=== PATIENT | female | born 1945 | race Caucasian/White ===

== ENCOUNTER 2016-12-08 11:56 | Observation (INO) ==
[2016-12-08] MEDS ORDERED: NITROGLYCERIN 2% OINT 1 INCH/GM PACK TOP STA (12:14)
[2016-12-08] MEDS ORDERED: ASPIRIN 325 MG TABLET PO STA (12:14)
[2016-12-08] MEDS ORDERED: ENOXAPARIN 100 MG/ML SYRINGE SUBCUT STA (12:14)
[2016-12-08] MEDS ORDERED: MORPHINE 2 MG/1 ML SYRINGE IV PRN (12:14)
[2016-12-08] MEDS ORDERED: ONDANSETRON 4 MG/2 ML VIAL IV PRN (12:14)
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
[2016-12-08 12:34] LABS: Basophils # 0.1 10*3/uL (0.0-0.2); Basophils % 0.9 % (0.0-0.8); Eosinophils # 0.1 10*3/uL (0.0-0.87); Eosinophils % 1.5 % (0.00-10.9); Hematocrit 36.3 VOL% (35.7-47.0); Hemoglobin 12.5 GM/DL (12.0-16.0); Immature Granulocytes % 0.2 %; Immature Granulocytes Absolute 0.01 #; Lymphocytes # 1.6 10*3/uL (1.4-4.0); Lymphocytes % 26.9 % (21.3-54.2); Mean Corpuscular HGB Conc 34.4 GM/DL (32-36); Mean Corpuscular Hemoglobin 31 PG (27-34); Mean Corpuscular Volume 90.8 FL (87-102); Mean Platelet Volume 10.6 FL (9.6-12.0); Monocytes # 0.4 10*3/uL (0.11-0.8); Monocytes % 7.5 % (1.7-12.7); Neutrophils # 3.7 10*3/uL (1.4-7.4); Platelet Count 168 T/CUMM (130-400); Red Cell Distribution Width 12.5 % (9.3-17.3); White Blood Count 5.8 T/CUMM (4-12)
--- NOTE | 2016-12-08 12:37 | XRay Report ---
XR chest 2V Indication: Chest pain Comparison: None available Findings: The heart and mediastinum are normal in size and configuration. The pulmonary vascularity is normal in caliber. No lung infiltrates, effusions, pneumothorax or other abnormality is demonstrated. Impression: Normal chest x-ray PROCEDURE INTERPRETED AT [facility] DEPARTMENT OF RADIOLOGY Final Report Signed by: Dr. Renato Rosenbaum
--- NOTE | 2016-12-08 12:39 | EKG Report ---
Stationary ECG Study [facility] ER Test Date: 12/08/2016 12:07:10 PM Pat Name: TASHA GOVEA Department: Room: Gender: F Payroll And Benefits Coordinator: : 1945 Requested by: Morro Florez Order Number: [id number] Reading MD: BETTY MORALES Intervals [place] Rate: 68 P: 999 ND: 0 QRS: 71 QRSD: 86 T: 44 QT: 445 QTc: 463 Interpretive Statements SINUS RHYTHM Electronically Signed On 12-09-16 18:31:31 CDT by BETTY MORALES [email or web address]
[2016-12-08 12:51] LABS: PT Patient Result 10.5 SECS; Partial Thromboplastin Time 24.7 SECS (0-40)
[2016-12-08] MEDS ORDERED: ASPIRIN 325 MG TABLET ONE (12:51)
[2016-12-08] MEDS ORDERED: NITROGLYCERIN 2% OINT 1 INCH/GM PACK TOP ONE (12:51)
[2016-12-08] MEDS ORDERED: ENOXAPARIN 60 MG/0.6 ML SYRINGE ONE (12:51)
[2016-12-08 13:48] LABS: Alanine Aminotransferase 18 U/L (13-56); Albumin 3.1 G/DL (3.4-5.0); Alkaline Phosphatase 70 U/L (45-117); Aspartate Amino Transferase 18 U/L (0-37); Bilirubin,Total < 0.39 MG/DL (0.2-1.0); Blood Urea Nitrogen 18 MG/DL (7-18); Glucose 87 MG/DL (74-106); Osmolality,Calculated 281.3 MOS/KG (273-304); Potassium 3.8 MMOL/L (3.5-5.1); Sodium 141 MMOL/L (136-145); Total Protein 6.2 G/DL (6.4-8.3)
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
[2016-12-08] MEDS ORDERED: ACETAMINOPHEN 325 MG TABLET PO PRN (15:36)
[2016-12-08] MEDS ORDERED: DOCUSATE SODIUM 100 MG CAPSULE PO PRN (15:36)
[2016-12-08] MEDS ORDERED: ALUM/MAG/SIMETH/LIDO VISC 1:1 30 ML BOTTLE PO ONE (16:37)
[2016-12-08] MEDS: SODIUM CHLORIDE 0.9% 1,000 ML IV SCH (17:30)
[2016-12-08] MEDS: PANTOPRAZOLE 40 MG TABLET PO SCH ×2 (17:30→22:07)
[2016-12-08] MEDS: ONDANSETRON 4 MG/2 ML VIAL IV PRN (17:31)
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
[2016-12-08] MEDS ORDERED: POTASSIUM CHLORIDE RIDER 10 MEQ in PREMIX 1 EACH IV PRN (17:36)
[2016-12-08] MEDS ORDERED: MAGNESIUM SULF RIDER 2 GM in PREMIX 1 EACH IV PRN (17:36)
--- NOTE | 2016-12-08 18:09 | EKG Report ---
Stationary ECG Study [facility] Test Date: 12/08/2016 6:11:27 PM Pat Name: TASHA GOVEA Department: Room: 276 Gender: F Shipping Room Helper: : 1945 Requested by: Morro Florez Order Number: [id number] Reading MD: DELBERT VALLADARES Intervals [place] Rate: 69 P: 78 NE: 147 QRS: 67 QRSD: 85 T: 57 QT: 428 QTc: 446 Interpretive Statements SINUS RHYTHM Electronically Signed On 12-10-16 05:24:19 CDT by DELBERT VALLADARES [id number]
[2016-12-08 19:37] LABS: Apearance,Urine CLEAR (Clear); Bacteria,Urine Occasional /HPF (Few); Bilirubin,Urine Negative (Negative); Blood, Urine Negative (Negative); Glucose,Urine (UA) Negative (Negative); Ketones,Urine Negative (Negative); Mucus,Urine Occasional /LPF (Occasional); Nitrite,Urine Negative (Negative); Protein,Urine Negative; RBC,Urine <1 /HPF (0-4); Squamous Epithelial Cell,Urine Occasional /HPF (0-10); Urine Color Straw (Yellow); Urine Specific Gravity 1.009 (1.001-1.035); Urine Urobilinogen < 2.0 EU/DL (0.2-1.0); WBC,Urine <1 /HPF (0-6)
[2016-12-09 05:45] LABS: Basophils # 0.1 10*3/uL (0.0-0.2); Eosinophils # 0.1 10*3/uL (0.0-0.87); Eosinophils % 2.7 % (0.00-10.9); Hematocrit 33.4 VOL% (35.7-47.0); Hemoglobin 11.2 GM/DL (12.0-16.0); Immature Granulocytes % 0.2 %; Immature Granulocytes Absolute 0.01 #; Lymphocytes # 1.9 10*3/uL (1.4-4.0); Lymphocytes % 39.8 % (21.3-54.2); Mean Corpuscular HGB Conc 33.5 GM/DL (32-36); Mean Corpuscular Hemoglobin 30 PG (27-34); Mean Corpuscular Volume 90.5 FL (87-102); Mean Platelet Volume 11.2 FL (9.6-12.0); Monocytes # 0.4 10*3/uL (0.11-0.8); Monocytes % 8.8 % (1.7-12.7); Neutrophils # 2.3 10*3/uL (1.4-7.4); Neutrophils % 47.5 % (38.7-73.9); Platelet Count 162 T/CUMM (130-400); Red Blood Count 3.69 MC/CUMM (3.8-5.5); Red Cell Distribution Width 12.6 % (9.3-17.3); White Blood Count 4.8 T/CUMM (4-12)
[2016-12-09] MEDS ORDERED: DIAZEPAM 5 MG TABLET PO ONE (06:00)
[2016-12-09] MEDS ORDERED: diphenhydrAMINE CAP 25 MG CAPSULE PO ONE (06:00)
[2016-12-09 06:36] LABS: Calcium 7.5 MG/DL (8.5-10.1); Magnesium 2.3 MG/DL (1.8-2.4); Osmolality,Calculated 282.1 MOS/KG (273-304); Potassium 4.1 MMOL/L (3.5-5.1); Risk Ratio 2.49; Thyroid Stimulating Hormone 2.94 uIU/ml (0.358-3.74); VLDL CHOLESTEROL 21.2 MG/DL
--- NOTE | 2016-12-09 07:06 | EKG Report ---
Stationary ECG Study [facility] Test Date: 12/09/2016 7:08:39 AM Pat Name: TASHA GOVEA Department: Room: 276 Gender: F Health Safety Specialist: CEE : 1945 Requested by: Joel Marcos Order Number: [id number] Rox MD: DELBERT VALLADARES Intervals [place] Rate: 66 P: 81 DE: 148 QRS: 80 QRSD: 87 T: 43 QT: 424 QTc: 437 Interpretive Statements SINUS RHYTHM Electronically Signed On 12-10-16 05:31:13 CDT by DELBERT VALLADARES [email or web address]
[2016-12-09] MEDS ORDERED: ASPIRIN EC 325 MG TABLET PO SCH (09:00)
[2016-12-09] MEDS: PANTOPRAZOLE 40 MG TABLET PO SCH ×2 (09:27→20:13)
--- NOTE | 2016-12-09 11:38 | Cardiology Progress Note ---
Cardiology - PN: Subj Interval history: Cardiology note No further pain. Telemetry has been benign. Blood pressure 140/86 Decreased breath sounds but clear Regular rhythm no murmur or gallop Abdomen benign Good distal pulses Lab data today Sodium 142 potassium 4.1 chloride 110 CO2 26 BUN 14 creatinine 0.70 Glucose 79 magnesium 2.3 Hemoglobin 11.2 Impression New onset chest pain Multiple risk factors Strong family history CAD Plan Cardiac cath today with Dr. Elias Exam (Progress Note) - Constitutional Vitals: Period Temp Pulse Resp BP Sys/Saunders Pulse Ox Last 24 Hr 96.3 F-99.3 F 66-78 12-20 106-153/51-83 96-100 Result/EKG - Labs CBC & BMP: 12/09/16 04:38 12/09/16 04:38 Labs: Laboratory Results - last 24 hr 12/08/16 12/08/16 12/08/16 12:23 12:23 12:23 WBC 5.8 RBC 4.00 Hgb 12.5 Hct 36.3 MCV 90.8 MCH 31 MCHC 34.4 RDW 12.5 Plt Count 168 MPV 10.6 Neut % (Auto) 63.0 Lymph % (Auto) 26.9 [place] % (Auto) 7.5 Eos % (Auto) 1.5 Baso % (Auto) 0.9 H Neut # (Auto) 3.7 Lymph # (Auto) 1.6 [place] # (Auto) 0.4 Eos # (Auto) 0.1 Baso # (Auto) 0.1 Immature Gran % 0.2 Nucleated RBC % 0.0 Immature Gran # 0.01 Nucleated RBCs # 0.00 INR 1.0 PT Patient/Control Mix 10.5 Circ Anticoag PTT 24.7 Sodium 141 Potassium 3.8 Chloride 109 H Carbon Dioxide 23 Anion Gap 12.8 BUN 18 Creatinine 0.70 GFR Calculation 77 BUN/Creatinine Ratio 25.00 H Glucose 87 Hemoglobin A1c Calculated Osmolality 281.3 Calcium 8.0 L Magnesium Total Bilirubin < 0.39 AST 18 ALT 18 Alkaline Phosphatase 70 Troponin I B-Natriuretic Peptide Total Protein 6.2 L Albumin 3.1 L Globulin 3.1 Albumin/Globulin Ratio 1.0 L Triglycerides Cholesterol LDL Cholesterol VLDL Cholesterol HDL Cholesterol Heart Disease Risk Ratio Free T4 TSH 3rd Generation Urine Color Urine Appearance Urine pH Ur Specific [place] Urine Protein Urine Glucose (UA) Urine Ketones Urine Blood Urine Nitrate Urine Bilirubin Urine Urobilinogen Urine Leukocytes Urine RBC Urine WBC Ur Squamous Epith Cells Urine Bacteria Urine Mucus Ur Culture Indicated? 12/08/16 12/08/16 12/08/16 12:23 17:14 19:07 WBC RBC Hgb Hct MCV MCH MCHC RDW Plt Count MPV Neut % (Auto) Lymph % (Auto) [place] % (Auto) Eos % (Auto) Baso % (Auto) Neut # (Auto) Lymph # (Auto) [place] # (Auto) Eos # (Auto) Baso # (Auto) Immature Gran % Nucleated RBC % Immature Gran # Nucleated RBCs # INR PT Patient/Control Mix Circ Anticoag PTT Sodium Potassium Chloride Carbon Dioxide Anion Gap BUN Creatinine GFR Calculation BUN/Creatinine Ratio Glucose Hemoglobin A1c Calculated Osmolality Calcium Magnesium Total Bilirubin AST ALT Alkaline Phosphatase Troponin I 0.019 0.249 H D B-Natriuretic Peptide Total Protein Albumin Globulin Albumin/Globulin Ratio Triglycerides Cholesterol LDL Cholesterol VLDL Cholesterol HDL Cholesterol Heart Disease Risk Ratio Free T4 TSH 3rd Generation Urine Color Straw Urine Appearance Clear Urine pH 6.0 Ur Specific [place] 1.009 Urine Protein Negative Urine Glucose (UA) Negative Urine Ketones Negative Urine Blood Negative Urine Nitrate Negative Urine Bilirubin Negative Urine Urobilinogen < 2.0 H Urine Leukocytes Negative Urine RBC <1 Urine WBC <1 Ur Squamous Epith Cells Occasional Urine Bacteria Occasional Urine Mucus Occasional Ur Culture Indicated? Not indicated 12/08/16 12/09/16 12/09/16 19:59 04:38 04:38 WBC 4.8 RBC 3.69 L Hgb 11.2 L Hct 33.4 L MCV 90.5 MCH 30 MCHC 33.5 RDW 12.6 Plt Count 162 MPV 11.2 Neut % (Auto) 47.5 Lymph % (Auto) 39.8 [place] % (Auto) 8.8 Eos % (Auto) 2.7 Baso % (Auto) 1.0 H Neut # (Auto) 2.3 Lymph # (Auto) 1.9 [place] # (Auto) 0.4 Eos # (Auto) 0.1 Baso # (Auto) 0.1 Immature Gran % 0.2 Nucleated RBC % 0.0 Immature Gran # 0.01 Nucleated RBCs # 0.00 INR PT Patient/Control Mix Circ Anticoag PTT Sodium 142 Potassium 4.1 Chloride 110 H Carbon Dioxide 26 Anion Gap 10.1 BUN 14 Creatinine 0.70 GFR Calculation 77 BUN/Creatinine Ratio 20.00 Glucose 79 Hemoglobin A1c Calculated Osmolality 282.1 Calcium 7.5 L Magnesium 2.3 Total Bilirubin AST ALT Alkaline Phosphatase Troponin I 0.458 H D B-Natriuretic Peptide Total Protein Albumin Globulin Albumin/Globulin Ratio Triglycerides 106 Cholesterol 179 LDL Cholesterol 91.0 VLDL Cholesterol 21.2 HDL Cholesterol 72 H Heart Disease Risk Ratio 2.49 Free T4 TSH 3rd Generation 2.940 Urine Color Urine Appearance Urine pH Ur Specific [place] Urine Protein Urine Glucose (UA) Urine Ketones Urine Blood Urine Nitrate Urine Bilirubin Urine Urobilinogen Urine Leukocytes Urine RBC Urine WBC Ur Squamous Epith Cells Urine Bacteria Urine Mucus Ur Culture Indicated? 12/09/16 12/09/16 12/09/16 04:38 04:38 04:38 WBC RBC Hgb Hct MCV MCH MCHC RDW Plt Count MPV Neut % (Auto) Lymph % (Auto) [place] % (Auto) Eos % (Auto) Baso % (Auto) Neut # (Auto) Lymph # (Auto) [place] # (Auto) Eos # (Auto) Baso # (Auto) Immature Gran % Nucleated RBC % Immature Gran # Nucleated RBCs # INR PT Patient/Control Mix Circ Anticoag PTT Sodium Potassium Chloride Carbon Dioxide Anion Gap BUN Creatinine GFR Calculation BUN/Creatinine Ratio Glucose Hemoglobin A1c 5.4 Calculated Osmolality Calcium Magnesium Total Bilirubin AST ALT Alkaline Phosphatase Troponin I B-Natriuretic Peptide 153 H Total Protein Albumin Globulin Albumin/Globulin Ratio Triglycerides Cholesterol LDL Cholesterol VLDL Cholesterol HDL Cholesterol Heart Disease Risk Ratio Free T4 0.81 TSH 3rd Generation Urine Color Urine Appearance Urine pH Ur Specific [place] Urine Protein Urine Glucose (UA) Urine Ketones Urine Blood Urine Nitrate Urine Bilirubin Urine Urobilinogen Urine Leukocytes Urine RBC Urine WBC Ur Squamous Epith Cells Urine Bacteria Urine Mucus Ur Culture Indicated?
--- NOTE | 2016-12-09 15:01 | Hospitalist Progress Note ---
Assessment and Plan (1) Unstable angina Status: Acute Assessment and plan: 1)unstable angina- troponins low but slowly increasing. TO cath today. BP stable. on aspirin. LDL 91 LDL72. 2)nausea and vomiting- resolved. appetite good. Current Visit: Yes (2) Nausea and vomiting Status: Acute Current Visit: Yes (3) GERD (gastroesophageal reflux disease) Status: Acute Current Visit: Yes Hospitalist: Subjective Interval history: Mrs Hightower is feeling ok this morning when I saw her just before her cath. She denied further chest pain or shortness of breath. She ate breakfast and had coffee. No more chest pain. Exam - Constitutional Vitals: Period Temp Pulse Resp BP Sys/Saunders Pulse Ox Last 24 Hr 98.0 F-99.3 F 66-78 12-20 106-153/56-83 96-100 General appearance: normal weight, no acute distress - Eye Eye exam: Present: EOMI. Absent: scleral icterus - Respiratory Respiratory exam: Present: clear to auscultation bilaterally - Cardiovascular Cardiovascular exam: Present: regular rate and rhythm - GI/Abdominal GI/Abdominal exam: Present: normal bowel sounds, soft. Absent: tenderness - Extremities Exam Extremities exam: Absent: edema Results - Labs CBC & BMP: 12/09/16 04:38 12/09/16 04:38
[2016-12-09] MEDS: SODIUM CHLORIDE 0.9% 1,000 ML IV SCH ×2 (15:48→19:56)
[2016-12-09] MEDS ORDERED: HEPARIN/NACL 0.9% 2 UNITS/ML 0 ML IV ONE (15:49)
[2016-12-09] MEDS ORDERED: HYDROmorphone 2 MG/1 ML VIAL ONE ×2 (15:49→16:12)
[2016-12-09] MEDS ORDERED: LIDOCAINE 1% 20 ML VIAL ONE (15:49)
[2016-12-09] MEDS ORDERED: MIDAZOLAM 2 MG/2 ML VIAL ONE ×2 (15:50→16:12)
[2016-12-09] MEDS ORDERED: ENOXAPARIN 60 MG/0.6 ML SYRINGE ONE (16:37)
--- NOTE | 2016-12-09 16:37 | ECHO Report ---
Carolyn Hightower Exam Date: 12/09/2016 09:44 Referring Physician: Technologist: Lorraine Bess LAVINIA Age: 71 Ht (in): 63 Wt (lb): 120 Gender: F Exam Location: [facility] Echo vomiting BP: 106 / 56 HR: 85 Rhythm: Sinus Technical Quality: average IMPRESSIONS Left ventricular ejection fraction is estimated at 65 %. Diastolic parameters are normal. There is no regional wall motion abnormality. Tricuspid regurgitation velocities suggest a RVSP of 36 mmHg plus the right atrial pressure. MEASUREMENTS (Male / Female) Normal Values 2D ECHO LV Diastolic Diameter PLAX 3.6 cm 4.2 - 5.9 / 3.9 - 5.3 cm LV Systolic Diameter PLAX 2.1 cm LV Fractional Shortening PLAX 39.9 % IVS Diastolic Thickness 0.8 cm 0.6 - 1.0 / 0.6 - 0.9 cm LVPW Diastolic Thickness 0.8 cm 0.6 - 1.0 / 0.6 - 0.9 cm RV Internal Dim ED PLAX 1.9 cm Aortic Root Diameter 2.9 cm LA Systolic Diameter LX 2.3 cm 3.0 - 4.0 / 2.7 - 3.8 cm DOPPLER TR Peak Velocity 299.0 cm/s TR Peak Gradient 35.8 mmHg FINDINGS Left Ventricle Normal left ventricular cavity size. Normal left ventricular cavity size. Left ventricular ejection fraction is estimated at 65 %. Diastolic parameters are normal. There is no regional wall motion abnormality. Right Ventricle The right ventricle is normal in size and function. Right Atrium The right atrium is normal in size. Left Atrium The left atrium is normal in size. Mitral Valve Mildly thickened mitral valve. Aortic Valve Morphologically normal aortic valve without significant sclerosis or stenosis. There is no aortic regurgitation. Tricuspid Valve Morphologically normal tricuspid valve. Mild tricuspid valve regurgitation. Tricuspid regurgitation velocities suggest a RVSP of 36 mmHg plus the right atrial pressure. Pulmonic Valve Morphologically normal pulmonic valve without significant stenosis. There is no pulmonic regurgitation. Pericardium Normal pericardium without effusion. Aorta Normal ascending aorta dimension. Yolanda Camacho (Electronically Signed) Final Date: 09 December 2016 16:36
[2016-12-09] MEDS ORDERED: TICAGRELOR 90 MG TABLET ONE (16:39)
[2016-12-09] MEDS ORDERED: NITROGLYCERIN SL 0.4 MG TABLET SL PRN (16:54)
[2016-12-09] MEDS ORDERED: ENOXAPARIN 40 MG/0.4 ML SYRINGE SUBCUT SCH (17:00)
[2016-12-09] MEDS ORDERED: ATROPINE 1 MG/1 ML VIAL ONE (17:06)
--- NOTE | 2016-12-09 17:10 | Cardiac Catheterization ---
Date of Procedure:: 12/09/16 Post-op diagnosis: same Procedure: Procedures performed: 1. Left heart catheterization 2. Coronary angiography 3. Angioplasty and stenting of ostial RCA disease with drug-eluting stent ( 2.25 x 20 synergy) 4. Right femoral arteriotomy closed with Angio-Seal device Brief clinical summary: Ms. Hightower is a 71-year-old with very strong family history of early CAD with episodes of chest pain radiating to her neck and jaw as well as presyncopal spells. Description of procedure: After obtaining informed consent, the right groin was prepped and draped in the usual sterile fashion. Next a short 6 Armenian sheath was placed in the right femoral artery using a modified Seldinger technique, after the patient received IV sedation and local anesthetic. Next a JL4 catheter was advanced over a guidewire under fluoroscopic guidance, and was engaged to the left coronary artery after which angiography was performed in multiple views. This was then removed over a wire, and a JR4 catheter was advanced in similar fashion, but it would not engage the RCA well. Therefore I changed for a 4 Armenian JR4 which engaged the vessel well and subsequently angiograms were performed in multiple views. Of note the blood pressure "damped " with engaged in with a 4 Armenian JR4. She also had associated bradycardia with heart rate dropping to the 40s. Next percutaneous coronary coronary intervention was performed as described below. After the intervention and angiogram showed that the sheath was inserted in the right common femoral artery in a vessel suitable for closure. Hemostasis was obtained with Angio- Seal device with no residual bleeding. The patient was transferred from the electronic lab technician in good condition without complication. The catheter crossed into the left ventricle during the catheterization and so EDP was measured as well as pullback which showed no AV gradient. Percutaneous coronary mention: The patient out of the [employer] Representative on aspirin and was given 0.6 mg/kg of IV Lovenox as well as loading dose of Brilinta 180 mg on the table. A 6 Armenian hockey-stick 1 guiding catheter with sideholes was advancing his right coronary artery which provided reasonable support. Next a pro-water wire was advanced to the distal posterior lateral without difficulty. After this a 2.25 x 20 noncompliant balloon was advanced and the ostium was dilated to near rated burst pressure with gradual dilation. The balloon was then removed and a 2.25 x 20 Synergy stent was advanced across the ostium leaving a couple millimeters into the aorta "hanging out". It was deployed at rated burst pressure gradually increasing the balloon inflation. The stent looked excellent ostially boot was a little oversized distally. I advanced the balloon. 4 mm performed a low pressure inflation across the distal edge of the stent for 1 minute and 10 seconds. There was a good intragraft result with 30% stenosis distal to the stent. There was STEVE-3 flow before and after the procedure. She tolerated the procedure well. Coronary angiography: Left main coronary arteries normal developed and free disease. Left anterior descending artery reaches the apex but is tortuous with some apparent bridging but without stenosis during contraction of the ventricle. There is a very small circumflex vessel with a very thin but reasonably long OM 1 was 60% proximal stenosis. There is a tiny OM 2 branch. The right coronary artery is the dominant vessel and is nearly average caliber. It has moderate calcification borderline heavy calcification at the ostium. There is a 80-90% ostial stenosis with "damping "of the blood pressure previously been noted with engagement with a 4 Armenian JR4. There was no reflux from the ostium with angiography. There is actually diffuse moderate calcification throughout the vessel with 60% distal RCA just before the takeoff of a long relatively thin PDA branch, and 60% proximal PL 1 stenosis, and a tiny peel to branch is noted. Impression: 1. Right dominant system 2. Slightly elevated left-sided filling pressure with LVEDP of 10 mmHg 3. Coronary artery disease as described above including but not limited to: A. Tortuous LAD with diffuse "bridging" and diffuse 30-50% disease in the mid vessel B. 60% proximal OM1 stenosis (very thin vessel) C. 90% moderate to heavily calcified ostial right coronary artery with 60% distal RCA disease 4. Status post angioplasty stenting of ostial to proximal RCA with drug- eluting stent (2.25 x 20 Synergy (dilated 2.4 mm) Recommendation and discussion: I believe achieved a very good result cart distending the Steens calcified ostial RCA disease. The rest of her disease is mild to intermediate at worst and should be treated medically the time being. She may be susceptible to episodes associated with her bridging in her LAD. Hopefully normal flow in her RCA will alleviate some of her symptoms of chest pain and dizziness. She mentioned to me that this worsened Friday which was the anniversary of her 19- year-old daughter's which "I have not been able to get over". Anesthesia: minimal conscious sedation Surgeon / Physician: Joel Castillo Photographer Still: other Estimated blood loss: minimal Specimens: none sent Condition: stable Disposition: floor - Medications / Follow-up
[2016-12-09 18:26] LABS: Troponin I Only 0.235 NG/ML (0.00-0.045)
[2016-12-09] MEDS: ONDANSETRON 4 MG/2 ML VIAL IV PRN (19:47)
[2016-12-09] MEDS: ATORVASTATIN 40 MG TABLET PO SCH (19:56)
[2016-12-09] MEDS: TICAGRELOR 90 MG TABLET PO SCH (20:13)
[2016-12-10 06:08] LABS: Basophils # 0.1 10*3/uL (0.0-0.2); Basophils % 1.1 % (0.0-0.8); Eosinophils # 0.2 10*3/uL (0.0-0.87); Eosinophils % 3.4 % (0.00-10.9); Hematocrit 34.8 VOL% (35.7-47.0); Hemoglobin 11.7 GM/DL (12.0-16.0); Immature Granulocytes % 0.2 %; Immature Granulocytes Absolute 0.01 #; Lymphocytes # 1.9 10*3/uL (1.4-4.0); Lymphocytes % 35.4 % (21.3-54.2); Mean Corpuscular HGB Conc 33.6 GM/DL (32-36); Mean Corpuscular Hemoglobin 30 PG (27-34); Mean Corpuscular Volume 89.9 FL (87-102); Monocytes # 0.5 10*3/uL (0.11-0.8); Monocytes % 9.5 % (1.7-12.7); Neutrophils # 2.7 10*3/uL (1.4-7.4); Neutrophils % 50.4 % (38.7-73.9); Platelet Count 164 T/CUMM (130-400); Red Blood Count 3.87 MC/CUMM (3.8-5.5); Red Cell Distribution Width 12.4 % (9.3-17.3); White Blood Count 5.4 T/CUMM (4-12)
[2016-12-10 06:30] LABS: Hypochromasia 1+; Microcytosis Slight; Target Cells Slight
[2016-12-10 06:45] LABS: Calcium 8.2 MG/DL (8.5-10.1); Magnesium 2.2 MG/DL (1.8-2.4); Osmolality,Calculated 275.5 MOS/KG (273-304); Potassium 3.8 MMOL/L (3.5-5.1)
[2016-12-10 06:55] LABS: Troponin I Only 0.445 NG/ML (0.00-0.045)
--- NOTE | 2016-12-10 08:01 | EKG Report ---
Stationary ECG Study [facility] Test Date: 12/10/2016 7:18:38 AM Pat Name: TASHA GOVEA Department: Room: 276 Gender: F Physical Education Aide: CEE : 1945 Requested by: Joel Marcos Order Number: [id number] Rox MD: DELBERT VALLADARES Intervals [place] Rate: 60 P: 78 AR: 151 QRS: 62 QRSD: 84 T: 58 QT: 437 QTc: 438 Interpretive Statements SINUS RHYTHM Electronically Signed On 12-10-16 11:46:09 CDT by DELBERT VALLADARES [email or web address]
--- NOTE | 2016-12-10 08:30 | Cardiology Progress Note ---
Cardiology - PN: Subj Interval history: Cardiology note Day 1 status post ostial RCA stent. 40% mid LAD and 60% small OM Right groin soft and dry. No bruit or hematoma. Distal pulses 2+ symmetric. Telemetry shows steady sinus rhythm. Blood pressure 132/74 Lab data today White count 5.4 hemoglobin 11.7 hematocrit 34.8 Sodium 139 potassium 3.8 chloride 106 CO2 26 BUN 16 creatinine 0.70 Glucose 69 magnesium 2.2 Negative CPK and trivial troponin Plan Home today okay with me No stooping straining or heavy lifting for 1 week to minimize potential groin problems Aspirin 81 mg daily and Brilinta 90 mg twice daily Atorvastatin 40 mg daily Office visit with Dr. Castillo in 1 week Exam (Progress Note) - Constitutional Vitals: Period Temp Pulse Resp BP Sys/Saunders Pulse Ox Last 24 Hr 96.5 F-99.3 F 63-78 16-20 100-153/55-85 92-100 Result/EKG - Labs CBC & BMP: 12/10/16 05:24 12/10/16 05:24 Labs: Laboratory Results - last 24 hr 12/09/16 12/10/16 12/10/16 17:30 05:24 05:24 WBC 5.4 RBC 3.87 Hgb 11.7 L Hct 34.8 L MCV 89.9 MCH 30 MCHC 33.6 RDW 12.4 Plt Count 164 MPV 11.0 Neut % (Auto) 50.4 Lymph % (Auto) 35.4 [place] % (Auto) 9.5 Eos % (Auto) 3.4 Baso % (Auto) 1.1 H Neut # (Auto) 2.7 Lymph # (Auto) 1.9 [place] # (Auto) 0.5 Eos # (Auto) 0.2 Baso # (Auto) 0.1 Immature Gran % 0.2 Nucleated RBC % 0.0 Immature Gran # 0.01 Nucleated RBCs # 0.00 Hypochromasia 1+ Microcytosis Slight Target Cells Slight Sodium 139 Potassium 3.8 Chloride 106 Carbon Dioxide 26 Anion Gap 10.8 BUN 16 Creatinine 0.70 GFR Calculation 79 BUN/Creatinine Ratio 22.00 H Glucose 69 L Calculated Osmolality 275.5 Calcium 8.2 L Magnesium 2.2 Total Creatine Kinase 67 CK-MB (CK-2) 2.6 Troponin I 0.235 H D 12/10/16 05:24 WBC RBC Hgb Hct MCV MCH MCHC RDW Plt Count MPV Neut % (Auto) Lymph % (Auto) [place] % (Auto) Eos % (Auto) Baso % (Auto) Neut # (Auto) Lymph # (Auto) [place] # (Auto) Eos # (Auto) Baso # (Auto) Immature Gran % Nucleated RBC % Immature Gran # Nucleated RBCs # Hypochromasia Microcytosis Target Cells Sodium Potassium Chloride Carbon Dioxide Anion Gap BUN Creatinine GFR Calculation BUN/Creatinine Ratio Glucose Calculated Osmolality Calcium Magnesium Total Creatine Kinase 58 CK-MB (CK-2) 3.2 Troponin I 0.445 H D Specialty Discharge - Follow Up or Referrals
[2016-12-10] MEDS ORDERED: ASPIRIN EC 81 MG TABLET PO SCH (09:00)
[2016-12-10] MEDS: ATORVASTATIN 40 MG TABLET PO SCH (10:04)
[2016-12-10] MEDS: PANTOPRAZOLE 40 MG TABLET PO SCH (10:04)
[2016-12-10] MEDS: TICAGRELOR 90 MG TABLET PO SCH (10:04)
[2016-12-10] MEDS: SODIUM CHLORIDE 0.9% 1,000 ML IV SCH (10:07)
--- NOTE | 2016-12-10 13:05 | Discharge Summary ---
Hospital Course - Hospital Course Hospital Course: Mrs Hightower presented with strong family history of CAD and chest and jaw pain. She ruled out for [place] and had cardiac cath that resulted in PTCA and stenting of ostial RCA disease with APRIL. She has done well since and is ready for discharge today. She was on no meds prior to admission and will be discharged on ASA, Brillinta, and Lipitor. She will follow up with Dr Street at her request because he is a family friend but she specifically said she appreciated all his partners did for her at this hospital stay. She will also follow up with her PCP when she decides who she wants to see. - Time spent with patient Time with patient DS: Greater than 30 minutes (37 minutes spent in discussion of discharge planning with the patient, care coordination with cardiology, documentation, medicine reconciliation) Diagnosis - Discharge Diagnosis (1) Unstable angina Status: Resolved (2) Nausea and vomiting Status: Resolved (3) GERD (gastroesophageal reflux disease) Status: Ruled-out Specialty Discharge - Follow Up or Referrals Follow up with: Derek Street MD [Physician] - 1 Week (family friend, has seen him before, follow up stent for [facility]) Discharge Plan - Discharge Data Disposition: Disch To Home/Self Care Condition at Discharge: Stable Discharge Diet: heart healthy Activity: resume usual activities as tolerated (per post cath instructions) - Discharge Medications New Atorvastatin [Lipitor] 40 mg PO DAILY #30 tablet Aspirin EC Tab 81 mg PO DAILY tablet Ticagrelor [Brilinta] 90 mg PO BID #60 tablet No Action No Known Home Medications [No Known Home Medications] - Follow Up or Referral Follow Up: Derek Street MD [Physician] - 1 Week (family friend, has seen him before, follow up stent for [facility]) - Forms/Instructions Instructions: Left Heart Catheterization (DC), Heart Healthy Diet (GEN), Coronary Artery Disease, Soda Drier Feeder (GEN) Exam - Constitutional Vitals: Period Temp Pulse Resp BP Sys/Saunders Pulse Ox Last 24 Hr 96.5 F-97.6 F 63-75 16-20 100-147/54-85 92-100 General appearance: normal weight, no acute distress - Eye Eye exam: Present: EOMI. Absent: scleral icterus - Respiratory Respiratory exam: Present: clear to auscultation bilaterally - Cardiovascular Cardiovascular exam: Present: regular rate and rhythm - GI/Abdominal GI/Abdominal exam: Present: normal bowel sounds, soft. Absent: tenderness - Extremities Exam Extremities exam: Absent: edema Discharge Results Labs on day of discharge: Labs from last 24 hours 12/10/16 12/10/16 12/10/16 05:24 05:24 05:24 WBC 5.4 RBC 3.87 Hgb 11.7 L Hct 34.8 L MCV 89.9 MCH 30 MCHC 33.6 RDW 12.4 Plt Count 164 MPV 11.0 Neut % (Auto) 50.4 Lymph % (Auto) 35.4 [place] % (Auto) 9.5 Eos % (Auto) 3.4 Baso % (Auto) 1.1 H Neut # (Auto) 2.7 Lymph # (Auto) 1.9 [place] # (Auto) 0.5 Eos # (Auto) 0.2 Baso # (Auto) 0.1 Immature Gran % 0.2 Nucleated RBC % 0.0 Immature Gran # 0.01 Nucleated RBCs # 0.00 Hypochromasia 1+ Microcytosis Slight Target Cells Slight Sodium 139 Potassium 3.8 Chloride 106 Carbon Dioxide 26 Anion Gap 10.8 BUN 16 Creatinine 0.70 GFR Calculation 79 BUN/Creatinine Ratio 22.00 H Glucose 69 L Calculated Osmolality 275.5 Calcium 8.2 L Magnesium 2.2 Total Creatine Kinase 58 CK-MB (CK-2) 3.2 Troponin I 0.445 H D 12/09/16 17:30 WBC RBC Hgb Hct MCV MCH MCHC RDW Plt Count MPV Neut % (Auto) Lymph % (Auto) [place] % (Auto) Eos % (Auto) Baso % (Auto) Neut # (Auto) Lymph # (Auto) [place] # (Auto) Eos # (Auto) Baso # (Auto) Immature Gran % Nucleated RBC % Immature Gran # Nucleated RBCs # Hypochromasia Microcytosis Target Cells Sodium Potassium Chloride Carbon Dioxide Anion Gap BUN Creatinine GFR Calculation BUN/Creatinine Ratio Glucose Calculated Osmolality Calcium Magnesium Total Creatine Kinase 67 CK-MB (CK-2) 2.6 Troponin I 0.235 H D DS: Provider Date of admission: 12/08/16 14:01 Primary care physician: . No PCP Attending physician on admission: Eliana Tang MD Consults: 12/08/16 15:36 Consult to Physician [CONS] Routine Comment: jaw pain/chest pressure Consulting Provider: Derek Street When should Consulting Provider be notified: In am 12/09/16 16:54 Consult to Cardiac Rehabilitation [CONS] Routine Reason for Cardiac Rehabilitation: Appt Out Pt Cardiac Rehab Consult Comment: cad; stent; acs Discharging clinician: Marianela Rush MD
[2016-12-10 15:41] VITALS: BP 106/62
== END 2016-12-10 15:39 | disposition home or self-care (01) ==
LOC: EDUNIT# → EDBD → N.EDINP 11:56 → N.ED 11:56 → SUATTDRO 14:01 → N.TELES 15:36 → UNDODISOB 12-10 10:00
PROVIDERS: ADMIT Internal Medicine; ATTEND Internal Medicine
PROC: CLCCHCL (ICD-10-PCS; 2016-12-09 18:15)